=== PATIENT | female | born 1930 | race Caucasian/White ===

== ENCOUNTER 2018-06-19 13:07 | Emergency (ER) | payer OTHER ==
[~2018-06-19] VITALS: Ht 167.6 cm; Wt 84.4 kg
[~2018-06-19 13:07] MED LIST: ALLOPURINOL100 MG PO; ATENOLOL100 MG PO; CALCIUM600 MG PO; FISH OIL1 CAP PO; FOLIC ACID1 MG PO; IRO PLEX PO; LECITHIN1200 MG PO; PLAVIX75 MG PO; SYNTHROID100 MCG PO; VITAMIN C100 MG PO; VITAMIN E100 UNI1 PO
== END 2018-06-19 17:08 | disposition home or self-care (01) ==
LOC: ER 13:07
DX: S05.11XA Contusion of eyeball and orbital tissues, right eye, initial encounter (principal); R42 Dizziness and giddiness; W18.09XA Striking against other object with subsequent fall, initial encounter; Y93.89 Activity, other specified; Y92.89 Other specified places as the place of occurrence of the external cause; Y99.8 Other external cause status

== ENCOUNTER 2019-01-20 13:52 | Emergency (ER) | payer OTHER ==
[~2019-01-20] VITALS: Ht 167.6 cm; Wt 86.2 kg
== END 2019-01-20 17:40 | disposition home or self-care (01) ==
LOC: ER 13:52
DX: S91.101A Unspecified open wound of right great toe without damage to nail, initial encounter (principal); X58.XXXA Exposure to other specified factors, initial encounter; Y93.89 Activity, other specified; Y92.89 Other specified places as the place of occurrence of the external cause; Y99.8 Other external cause status

== ENCOUNTER 2021-01-21 10:37 | Emergency (ER) | payer OTHER ==
[~2021-01-21] VITALS: Ht 167.6 cm; Wt 88.5 kg
== END 2021-01-21 14:26 | disposition home or self-care (01) ==
LOC: ER 10:37
DX: I50.9 Heart failure, unspecified (principal); R06.02 Shortness of breath; R42 Dizziness and giddiness; Z03.818 Encounter for observation for suspected exposure to other biological agents ruled out; N39.0 Urinary tract infection, site not specified

== ENCOUNTER 2021-08-18 23:10 | Emergency (ER) | payer OTHER ==
[~2021-08-18] VITALS: Ht 167.6 cm; Wt 88.5 kg
[2021-08-18] MEDS ORDERED: GABAPENTIN100 M2 PO (23:34)
[2021-08-18] MEDS ORDERED: METOPROLOL SUCC25 MG PO (23:34)
[2021-08-18] MEDS ORDERED: FUROSEMIDE20 MG PO (23:34)
[2021-08-18] MEDS ORDERED: GLIMEPIRIDE2 M1 PO (23:34)
[2021-08-18] MEDS ORDERED: XARELTO15 MG PO (23:35)
== END 2021-08-19 00:34 | disposition home or self-care (01) ==
LOC: ER 23:10
DX: S00.412A Abrasion of left ear, initial encounter (principal); Z88.0 Allergy status to penicillin; Z88.6 Allergy status to analgesic agent; Z91.018 Allergy to other foods

== ENCOUNTER 2021-11-07 17:43 | Emergency (ER) | payer OTHER ==
[~2021-11-07] VITALS: Ht 167.6 cm; Wt 89.4 kg
[~2021-11-07 17:43] MED LIST changes: +FUROSEMIDE20 MG PO; +GABAPENTIN100 M2 PO; +GLIMEPIRIDE2 M1 PO; +METOPROLOL SUCC25 MG PO; +XARELTO15 MG PO
== END 2021-11-07 23:04 | disposition home or self-care (01) ==
LOC: ER 17:43
DX: R42 Dizziness and giddiness (principal); Z88.0 Allergy status to penicillin; Z88.6 Allergy status to analgesic agent; Z91.018 Allergy to other foods